=== PATIENT | male | born 1970 ===

== ENCOUNTER 2019-10-21 19:30 | Emergency (ER) | payer BC ==
--- NOTE | 2019-10-21 20:11 | ER Document Report ---
ED Medical Screen (RME) - General Chief Complaint: Chest Pain Stated Complaint: CHEST PAIN Time Seen by Provider: 10/21/19 20:01 Notes: Patient is a 49-year-old male who presents to the emergency department with a chief complaint of chest pain. His pain started at 1830 this evening. His gave him some aspirin, which she thinks is 325 mg. Patient states that his symptoms did improve. At the time of onset of chest pain, he had some tingling in both sides of his fingers. He has a history of hyperlipidemia. Patient also states that he was not feeling very well the past week. Denies any cough. Denies any fever. Exam: S1, S2. Sinus rhythm. I have greeted and performed a rapid initial assessment of this patient. A comprehensive ED assessment and evaluation of the patient, analysis of test results and completion of medical decision making process will be conducted by an additional ED providers. TRAVEL OUTSIDE OF THE [place] IN LAST 30 DAYS: No - Related Data Allergies/Adverse Reactions: No Known Allergies Allergy (Unverified 10/21/19 20:05) Past Medical History - Immunizations Hx Diphtheria, Pertussis, Tetanus Vaccination: Yes - 09/23/14 Physical Exam - Vital signs Vitals: Temp Pulse Resp BP Pulse Ox 98.1 F 70 18 146/91 H 99 10/21/19 19:53 10/21/19 19:53 10/21/19 19:53 10/21/19 19:53 10/21/19 19:53 Course - Vital Signs Vital signs: Temp Pulse Resp BP Pulse Ox 98.1 F 70 18 146/91 H 99 10/21/19 19:53 10/21/19 19:53 10/21/19 19:53 10/21/19 19:53 10/21/19 19:53
[2019-10-21 20:30] LABS: ABSOLUTE BASOPHILS # (AUTO) 0.1 10^3/uL (0.0-0.2); ABSOLUTE EOSINOPHILS # (AUTO) 0.3 10^3/uL (0.0-0.6); ABSOLUTE LYMPHOCYTES (AUTO) 2.9 10^3/uL (0.5-4.7); ABSOLUTE MONOCYTES (AUTO) 0.5 10^3/uL (0.1-1.4); ABSOLUTE NEUT (AUTO) 6.7 10^3/uL (1.7-8.2); BASOPHILS % (AUTO) 0.7 % (0-2); HEMOGLOBIN 15.8 g/dL (13.5-17.0); LYMPHOCYTES % (AUTO) 27.4 % (13-45); MEAN CORPUSCULAR HEMOGLOBIN 32.3 pg (27.0-33.4); MEAN CORPUSCULAR HGB CONC 35.8 g/dL (32.0-36.0); MEAN CORPUSCULAR VOLUME 90 fl (80-97); MONOCYTES % (AUTO) 4.5 % (3-13); PLATELET COUNT 300 10^3/uL (150-450); RED BLOOD COUNT 4.89 10^6/uL (4.35-5.55); RED CELL DISTRIBUTION WIDTH 12.7 % (11.5-14.0); SEGMENTED NEUTROPHILS % (AUTO) 64.4 % (42-78); TOTAL CELLS COUNTED % (AUTO) 100 %; WHITE BLOOD COUNT 10.4 10^3/uL (4.0-10.5)
--- NOTE | 2019-10-21 20:38 | RADIOLOGY REPORT (SQ) ---
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 COMPARISON: None. FINDINGS: The cardiac silhouette is within normal limits. There is no pulmonary vascular congestion. No focal consolidation is identified. No pleural effusions or pneumothorax. IMPRESSION: No evidence of acute cardiopulmonary disease.
[2019-10-21 20:49] LABS: ALBUMIN 4.7 g/dL (3.5-5.0); ALKALINE PHOSPHATASE 92 U/L (38-126); ANION GAP 9 (5-19); ASPARTATE AMINO TRANSFERASE 28 U/L (17-59); BILIRUBIN,DIRECT 0.3 mg/dL (0.0-0.4); BILIRUBIN,TOTAL 0.3 mg/dL (0.2-1.3); BLOOD UREA NITROGEN 14 mg/dL (7-20); CALCIUM 9.9 mg/dL (8.4-10.2); CARBON DIOXIDE 32 mmol/L (22-30); CHLORIDE 100 mmol/L (98-107); GLUCOSE 120 mg/dL (75-110); POTASSIUM 4.3 mmol/L (3.6-5.0); TOTAL PROTEIN 8.1 g/dL (6.3-8.2)
--- NOTE | 2019-10-21 22:49 | EKG REPORT ---
SEVERITY:- NORMAL ECG - SINUS RHYTHM : Confirmed by: Sosa Stone MD 21-Oct-2019 22:49:11
--- NOTE | 2019-10-22 00:01 | ER Document Report ---
ED General - General Chief Complaint: Chest Pain Stated Complaint: CHEST PAIN Time Seen by Provider: 10/21/19 20:01 Mode of Arrival: Ambulatory Information source: Patient TRAVEL OUTSIDE OF THE [place] IN LAST 30 DAYS: No - HPI Onset: Other - started at 6pm on 10/21/19 Onset/Duration: Sudden Quality of pain: Pressure, Sharp Severity: Moderate Pain Level: 3 Associated symptoms: Nausea, Shortness of breath, Sweating Exacerbated by: Denies Relieved by: Other - Aspirin Similar symptoms previously: Yes - patient has had chest pains before but this was much worse Recently seen / treated by doctor: No Notes: 49 year old male with a history of HLD here for chest pain/pressure with nausea, sweating, and shortness of breath which started at 6pm. The patient's significant other gave him an ASA and the chest pain resolved within an hour. The patient says the pain felt like someone was sitting on his chest and he had some numbness and tingling going down his left arm. The patient says he has had chest pains off and on for several months now when he has been under stress but he has never had the chest pain be as severe or last as long as today. The patient has never had a stress test. The patient's grandfather had an DE in his late 20s and of heart issues in his 40s. The patient has no history of DM or HTN. The patient no longer smokes but he has smoked 6 years in total in the past. - Related Data Allergies/Adverse Reactions: No Known Allergies Allergy (Unverified 10/21/19 20:05) Past Medical History - General Information source: Patient - Social History Smoking Status: Former Smoker Chew tobacco use (# tins/day): No Frequency of alcohol use: Rare Drug Abuse: Marijuana Lives with: Spouse/Significant other Family History: CAD - with grandfather in his 20s Patient has suicidal ideation: No Patient has homicidal ideation: No - Past Medical History Cardiac Medical History: Reports: Hx Hypercholesterolemia Neurological Medical History: Reports: Hx Seizures Past Surgical History: Reports: Hx Orthopedic Surgery - Immunizations Hx Diphtheria, Pertussis, Tetanus Vaccination: Yes - 09/23/14 Review of Systems - Review of Systems Constitutional: Diaphoresis EENT: No symptoms reported Cardiovascular: Chest pain Gastrointestinal: Nausea Genitourinary: No symptoms reported Male Genitourinary: No symptoms reported Musculoskeletal: No symptoms reported Skin: No symptoms reported Hematologic/Lymphatic: No symptoms reported Neurological/Psychological: No symptoms reported -: Yes All other systems reviewed and negative Physical Exam - Vital signs Vitals: Temp Pulse Resp BP Pulse Ox 98.1 F 70 18 146/91 H 99 10/21/19 19:53 10/21/19 19:53 10/21/19 19:53 10/21/19 19:53 10/21/19 19:53 - Notes Notes: GENERAL: Well-appearing, well-nourished and in no acute distress. HEAD: Atraumatic, normocephalic. EYES: Pupils equal round and reactive to light, extraocular movements intact, sclera anicteric, conjunctiva are normal. ENT: Nares patent, oropharynx clear without exudates. Moist mucous membranes. NECK: Normal range of motion, supple without lymphadenopathy or JVD. LUNGS: Breath sounds clear to auscultation bilaterally and equal. No wheezes rales or rhonchi. HEART: Regular rate and rhythm without murmurs, rubs or gallops. ABDOMEN: Soft, nontender, normoactive bowel sounds. No guarding, no rebound. No masses appreciated. EXTREMITIES: Normal range of motion, no pitting or edema. No clubbing or cyanosis. NEUROLOGICAL: Cranial nerves II through XII grossly intact. Normal speech, normal gait. PSYCH: Normal mood, normal affect. SKIN: Warm, Dry, normal turgor, no rashes or lesions noted. Course - Re-evaluation Re-evalutation: 10/22/19 01:36 The patient has a family history of CAD at an early age in his grandpa and he has been told he has high cholesterol but he is not on medication. The patient otherwise has no CAD risk factors (he was a remote smoker for 6 years). Patient has a completely normal EKG, normal chest xray, and 2 negative Trops. Patient told to follow up with a Building Equipment Operator in the next few days to have an outpatient cardiac stress test. - Vital Signs Vital signs: Temp Pulse Resp BP Pulse Ox 98.1 F 70 18 105/67 95 10/21/19 19:53 10/21/19 19:53 10/22/19 01:00 10/22/19 01:00 10/22/19 01:01 - Laboratory Result Diagrams: 10/21/19 20:20 10/21/19 20:20 Laboratory results interpreted by me: 10/21/19 20:20 Carbon Dioxide 32 H Glucose 120 H - Diagnostic Test Radiology reviewed: Image reviewed, Reports reviewed - EKG Interpretation by Me EKG shows normal: Sinus rhythm, [place], Intervals, QRS Complexes, ST-T Waves Rate: Normal Rhythm: NSR Discharge - Discharge Clinical Impression: Chest pain Qualifiers: Chest pain type: unspecified Qualified Code(s): R07.9 - Chest pain, unspecified Condition: Stable Disposition: HOME, SELF-CARE Instructions: Chest Pain of Unclear Cause ([facility]) Additional Instructions: Follow up with your primary care doctor and with a Building Equipment Operator. You need to have an outpatient cardiac stress test in the next several days. Tell your doctors you were in the ER and you had an EKG which was normal, a chest xray which was clear, and 2 negative Troponins. Referrals: DAWOOD DUNHAM MD [ACTIVE STAFF] - Follow up as needed MARCELO ADHIKARI MD [ACTIVE STAFF] - Follow up as needed
[2019-10-22 01:53] VITALS: BP 120/80
== END 2019-10-22 01:54 | disposition home or self-care (01) ==
LOC: ER 19:30
DX: R07.9 Chest pain, unspecified (principal); R11.0 Nausea; R06.02 Shortness of breath; R61 Generalized hyperhidrosis; E11.9 Type 2 diabetes mellitus without complications; I10 Essential (primary) hypertension; Z87.891 Personal history of nicotine dependence
CPT/HCPCS: 36415; 71046; 80053; 83735; 84484; 85025; 93005; 93010; 99285